=== PATIENT | male | born 1975 | race Caucasian/White ===

== ENCOUNTER 2020-12-21 04:40 | Emergency (ER) | payer OTHER ==
[~2020-12-21 04:40] MED LIST: NORCO 7.5-3251 EACH PO
== END 2020-12-21 06:55 | disposition home or self-care (01) ==
LOC: ER1 04:40
DX: T26.91XA Corrosion of right eye and adnexa, part unspecified, initial encounter (principal); T26.92XA Corrosion of left eye and adnexa, part unspecified, initial encounter; F17.210 Nicotine dependence, cigarettes, uncomplicated
CPT/HCPCS: 99283

== ENCOUNTER 2021-04-13 17:49 | Emergency (ER) | payer SELFPAY | END 2021-04-13 19:38 | disposition left against medical advice (07) | LOC: ER1 17:49 | DX: Z53.21 Procedure and treatment not carried out due to patient leaving prior to being seen by health care provider (principal) ==